=== PATIENT | female | born 1965 | race Caucasian/White ===

== ENCOUNTER 2018-04-20 08:24 | Emergency (ER) | payer OTHER, MEDICAID ==
[~2018-04-20] VITALS: Ht 172.7 cm; Wt 72.6 kg
[~2018-04-20 08:24] MED LIST: ACTOS15 MG PO; BUSPAR5 MG PO; CRESTOR5 MG PO; CYMBALTA60 M1 PO; DESYREL100 MG PO; GABAPENTIN400 MG PO; HUMALOG100 U/ML SC; LEVEMIR100 U/ML SC; LISINOPRIL5 MG PO; NEXIUM40 MG PO; REGLAN5 MG PO; VIBRAMYCIN100 MG PO; VICODIN 500 MG-1 TAB PO
[2018-04-20] MEDS ORDERED: Motrin,Rufen800 MG PO (10:26)
== END 2018-04-20 10:30 | disposition home or self-care (01) ==
LOC: ED 08:24
DX: S86.911A Strain of unspecified muscle(s) and tendon(s) at lower leg level, right leg, initial encounter (principal); Z79.899 Other long term (current) drug therapy; X58.XXXA Exposure to other specified factors, initial encounter; Y93.89 Activity, other specified; Y92.89 Other specified places as the place of occurrence of the external cause; Y99.8 Other external cause status

== ENCOUNTER 2019-03-02 20:01 | Inpatient (IN) | payer OTHER, MEDICAID ==
[~2019-03-02] VITALS: Ht 170.1 cm; Wt 75.2 kg
--- NOTE | ~2019-03-02 | EKG ---
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
--- NOTE | ~2019-03-02 | EKG ---
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
--- NOTE | ~2019-03-02 | EKG ---
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
--- NOTE | ~2019-03-02 | CON ---
[place], [place] REPORT OF CONSULTATION NAME: THONY SMITH UNIT #: [id number] ROOM: 426 DOCTOR: ELDER GARCIAALEC BIRTHDATE: [birth year] DOS: 03/05/2019 GASTROENDOSCOPIC REPORT HISTORY OF PRESENT ILLNESS: The patient is a 54-year-old who has presented with chief complaint of GI bleed. The patient has been on Advil and a nicotine aggressive smoker. CT scan of the abdomen and pelvis was done, small hiatal hernia, thickening of the distal esophagus. Endoscopy was recommended. Troponin was negative. Her CBC differential, H and H status stable at 12 and 38. Comprehensive metabolic panel, liver function tests essentially unremarkable. Triglyceride 254. Lipase was reassessed within normal limit. Chest x-ray has been obtained, no acute pathology. PAST MEDICAL HISTORY: Associated with COPD, diabetes mellitus, anxiety and gastroparesis. PAST SURGICAL HISTORY: D and C, hysterectomy. SOCIAL HISTORY: Lai-ivm-p-half pack smoker, nonalcohol consumer. FAMILY HISTORY: Noncontributory. ALLERGIES: No known medications. MEDICATIONS: List has been reviewed including Nexium, Motrin 800 mg t.i.d. p.r.n. and multi others as reviewed. REVIEW OF SYSTEMS: HEENT: Denies double vision or blurred vision. RESPIRATORY: Denies acute shortness of breath. CARDIOVASCULAR: Denies acute chest pain. DIGESTIVE SYSTEM: GI bleed, nausea, epigastric distress, vomiting. PHYSICAL EXAMINATION: GENERAL: COPD patient. HEENT: Within normal limit. Mouth and buccal mucosa benign, edentulous. NECK: Supple. LUNGS: COPD pattern, decreased air entry. HEART: Normal sinus rhythm, no gallop, no murmur. ABDOMEN: Soft. No hepato-organomegaly. Bowel sounds present. No pulsatile mass. EXTREMITIES: No cyanosis, no pedal edema. NEUROLOGIC: Alert, oriented to time, place, person. IMPRESSION: Nausea, epigastric distress, vomiting, gastrointestinal bleed. The patient on Motrin. The patient on multi other medications including Nexium and metoclopramide. PLAN AND DISCUSSION: I am going to proceed with panendoscopic assessment for the concerns of CT scan and thickening of the distal esophagus. [place], [place] REPORT OF CONSULTATION NAME: THONY SMITH UNIT #: [id number] ROOM: 426 DOCTOR: ELDER GARCIA,ALEC BIRTHDATE: [birth year] Thank you very much indeed for your kind referral. ALEC FRIEDMAN MD CM:CONSTR:REPORT OF CONSULTATION 1505 03/14/19 0727 interface
--- NOTE | ~2019-03-02 | O ---
[place], [place] OPERATIVE NOTE NAME: THONY SMITH UNIT #: [id number] ROOM: 426 DOCTOR: ALEC FRIEDMAN MD BIRTHDATE: [birth year] DOS: 03/05/2019 PROCEDURE: Today's procedure part of investigation is panendoscopy plus biopsy and photographic series. PREMEDICATION: Propofol. SCOPE: Olympus forward-viewing gastroscope Q10 video. REPORT: After putting the patient in left lateral position and application of lubricant to the scope, the scope was introduced. Thereafter, under direct visualization, advanced through the length of esophagus without difficulty. As we approached distal esophagus, there is evidence of distal esophageal ulcerations secondary to reflux, hiatal hernia was photographed. Gastric pouch was entered. Gastritis was noticed. Antral biopsy obtained. Duodenal bulb, second and third part within normal limits. The patient extubated after antral biopsy and GI reflexion, tolerated the procedure well. IMPRESSION: Reflux, distal esophageal ulcerations, hiatal hernia, gastritis, status post biopsy. PLAN AND DISCUSSION: We are going to continue with Protonix 40 mg daily, Carafate 2 grams 2 hours before meals and at bedtime. GERD diet and clinical reassessment. Etiology for GI bleed was secondary to ulcerations at distal esophagus secondary to reflux induced by aspirin products, nonsteroidal anti-inflammatories. Thank you very much indeed for your kind referral. ALEC FRIEDMAN MD CM:OPRECORD:OPERATIVE NOTE 1505 [id number] ALEC FRIEDMAN MD 03/06/19 0838 interface
[~2019-03-02 20:01] MED LIST changes: +BUSPAR15 MG PO; -BUSPAR5 MG PO; -GABAPENTIN400 MG PO; +GABAPENTIN600 MG PO; -LEVEMIR100 U/ML SC; +LEVEMIR100 UNIT/1 SQ; +LISINOPRIL10 M1 PO; -LISINOPRIL5 MG PO; +Motrin,Rufen800 MG PO
[2019-03-02 20:03] VITALS: BP 150/95
[2019-03-02 20:28] LABS: BASO # 0.2 10*3/uL (0.0-0.1); BASO % 0.7 % (0.0-1.0); EOS # 0.1 10*3/uL (0.0-0.4); EOS % 0.2 % (1.0-4.0); HEMATOCRIT 46.4 % (37.0-47.0); HEMOGLOBIN 15.1 g/dl (12.0-16.0); LYMPH # 2.9 10*3/uL (1.3-4.4); LYMPH % 12.9 % (27.0-41.0); MEAN CELL VOLUME 87.9 fl (81.0-99.0); MEAN CORPUSCULAR HGB 28.6 pg (27.0-31.0); MEAN CORPUSCULAR HGB CONC 32.5 g/dl (33.0-37.0); MEAN PLATELET VOLUME 9.9 fl (9.6-12.3); MONO % 4.6 % (3.0-9.0); NEUT % 80.9 % (47.0-73.0); PLATELET COUNT AUTOMATED 381 10*3/uL (130-400); RED BLOOD COUNT 5.28 10*6/uL (4.10-5.10); RED CELL DISTRI WIDTH 13.7 % (0-14.5); WHITE BLOOD COUNT 22.2 10*3/uL (4.8-10.8)
--- NOTE | 2019-03-02 20:31 | NUR ---
PT HAD APPROX 350CC COFFE GROUND LIKE EMESIS.SPECIMEN LABELED AND SENT TO LAB.
[2019-03-02 20:39] LABS: ACT PARTIAL THROMBO TIME 23.2 SECONDS (20.0-32.1); INTERNATIONAL NORM RATIO 0.9 (2.0-3.5)
[2019-03-02 20:47] LABS: ALKALINE PHOSPHATASE 154 U/L (45-117); BUN 15 mg/dl (7-24); CHLORIDE 96 mmol/L (98-107); CREATININE 1.12 mg/dL (0.55-1.02); POTASSIUM 4.2 mmol/L (3.5-5.1); SGOT/AST 4 IU/L (3-35); SGPT/ALT 13 U/L (12-78); SODIUM 132 mmol/L (136-145); TOTAL PROTEIN 8.1 gm/dL (6.4-8.2)
--- NOTE | 2019-03-02 20:47 | NUR ---
LAB CALLED WITH CRITICAL LACTIC ACID LEVEL 3.0. MD NOTIFIED.
[2019-03-02 20:48] LABS: TROPONIN I < 0.015 ng/ml (<0.045)
--- NOTE | 2019-03-02 20:48 | NUR ---
PT HAS SECOND EPISODE OF APPROX 300CC BROWN LIQUID EMESIS.
[2019-03-02 20:56] VITALS: BP 119/75
[2019-03-02] MEDS ORDERED: OZEMPIC1 MG/0.75 SQ (21:09)
[2019-03-02] MEDS ORDERED: DIAZEPAM5 MG PO (21:10)
[2019-03-02] MEDS ORDERED: JARDIANCE25 MG PO (21:12)
[2019-03-02] MEDS ORDERED: ROPINIROLE HYDRO2 M2 PO (21:13)
[2019-03-02] MEDS ORDERED: VITAMIN D2 PO (21:14)
[2019-03-02] MEDS ORDERED: PAROXETINE HCL30 MG PO (21:15)
[2019-03-02] MEDS ORDERED: CETIRIZINE HYDR10 MG PO (21:15)
[2019-03-02] MEDS ORDERED: METFORMIN HYD1000 MG PO (21:16)
[2019-03-02] MEDS ORDERED: METOCLOPRAMIDE10 M1 PO (21:17)
[2019-03-02] MEDS ORDERED: PRAVASTATIN SOD40 MG PO (21:17)
[2019-03-02] MEDS ORDERED: QUETIAPINE FUM300 M1 PO (21:19)
--- NOTE | 2019-03-02 21:22 | NUR ---
PT RETURNED FROM CT VIA STRETCHER, PT REPORTS RETURNING CHEST PRESSURE.MD NOTIFIED.
[2019-03-02 21:37] VITALS: BP 133/67
--- NOTE | 2019-03-02 22:02 | NUR ---
INFUSION OF 1ST LITER NS COMPLETED.
[2019-03-02 22:16] LABS: BILIRUBIN 1+ (NEGATIVE); BLOOD NEGATIVE (NEGATIVE); CLARITY CLEAR (CLEAR); COLOR YELLOW (YELLOW); GLUCOSE 3+ (NEGATIVE); KETONE 3+ (NEGATIVE); LEUKO ESTERASE NEGATIVE (NEGATIVE); NITRITE NEGATIVE (NEGATIVE); PH 5.5 (5.0-9.0); UROBILINOGEN 0.2 E.U./dl (0.2-1.0)
[2019-03-02 22:22] VITALS: BP 132/77
--- NOTE | 2019-03-02 22:22 | NUR ---
A 54yr old female,, admitted to ICCU, under the services of PATRICIA Newby DO with a diagnosis of DKA AND GI bleed. Chief complaint is not eating since Tuesday, with nausea, therefore didn't take any Insulin. Patient arrived via stretcher from ER. Monitor applied. Initial assessment completed. Vital signs taken and recorded. See assessment for past medical history, medications and allergies. Patient and/or family oriented to unit. [facility] ICCU visitation policy reviewed. Clothing/patient valuable form completed. Bedside Blood sugar obtained on arrival-308. Insulin drip started at 5units/hr per orders. KACIE MAGANA
[2019-03-02 22:25] LABS: YEAST 1+
--- NOTE | 2019-03-02 22:35 | NUR ---
MRSA SWAB SENT TO LAB.
[2019-03-02 22:57] LABS: ABG BASE EXCESS -17.3 mmol/L (-2.0-2.0); ABG HCO3 8.1 mmol/l (22-26); ABG O2 SATURATION 93.9 % (95-97); ARTERIAL BLOOD GAS PCO2 18.3 mmHg (35-45); ARTERIAL BLOOD GAS PH 7.266 (7.35-7.45)
[2019-03-02 23:39] LABS: BUN 16 mg/dl (7-24); CHLORIDE 105 mmol/L (98-107); POTASSIUM 4.3 mmol/L (3.5-5.1); SODIUM 137 mmol/L (136-145)
[2019-03-03] VITALS: BP 123/63
--- NOTE | 2019-03-03 01:05 | NUR ---
MILK OF MAG AND ZOFRAN GIVEN FOR COMPLAINTS OF NAUSEA, UPSET STOMACH AND HEARTBURN. RN WILL CONTINUE TO MONITOR
--- NOTE | 2019-03-03 01:30 | NUR ---
PATIENT MEDICATED WITH REGLAN PER DRS ORDERS FOR COMPLAINTS OF UPSET STOMACH. RN WILL CONTINUE TO MONITOR
--- NOTE | 2019-03-03 02:56 | NUR ---
NORCO GIVEN PER DRS ORDERS FOR COMPLAINTS OF HEADACHE AT THIS TIME. RN WILL REASSESS FOR EFFECTIVENESS
[2019-03-03 04:00] VITALS: BP 136/78
--- NOTE | 2019-03-03 05:13 | NUR ---
TYLENOL GIVEN FOR LOW GRADE FEVER AT 99.9 DEGREES TYMPANIC. PATIENT ABLE TO SWALLOW PILLS BUT STARTS SHE IS NAUSEATED.
--- NOTE | 2019-03-03 05:35 | NUR ---
PATIENT HAD LARGE EMESIS OF 575, LIGHT BROWN COLORED. PATIENT PROVIDED WITH NEW EMESIS BAG. DR TO BE MADE AWARE
[2019-03-03 05:41] LABS: ALBUMIN 3.5 gm/dl (3.1-4.5); ALKALINE PHOSPHATASE 128 U/L (45-117); BUN 13 mg/dl (7-24); CHLORIDE 107 mmol/L (98-107); CHOLESTEROL 169 mg/dL (<200); FREE T4 0.98 ng/dl (0.76-1.46); HDL CHOLESTEROL 36 mg/dl (40-60); LDL CHOLESTEROL 82 mg/dL (9-159); POTASSIUM 3.8 mmol/L (3.5-5.1); SGPT/ALT 11 U/L (12-78); SODIUM 140 mmol/L (136-145); TRIGLYCERIDES 254 mg/dl (<150); VLDL CHOLESTEROL 51 mg/dL (6-40)
[2019-03-03 05:48] LABS: SGOT/AST < 3 IU/L (3-35)
[2019-03-03 06:11] LABS: BASO # 0.1 10*3/uL (0.0-0.1); BASO % 0.3 % (0.0-1.0); LYMPH % 9.8 % (27.0-41.0); MEAN CORPUSCULAR HGB 28.4 pg (27.0-31.0); MEAN CORPUSCULAR HGB CONC 33.1 g/dl (33.0-37.0); MEAN PLATELET VOLUME 9.9 fl (9.6-12.3); MONO # 1.2 10*3/uL (0.1-1.0); MONO % 6.1 % (3.0-9.0); NEUT # 16.9 10*3/uL (2.3-7.9); NEUT % 83.3 % (47.0-73.0); PLATELET COUNT AUTOMATED 349 10*3/uL (130-400); RED CELL DISTRI WIDTH 13.9 % (0-14.5); WHITE BLOOD COUNT 20.3 10*3/uL (4.8-10.8)
[2019-03-03 06:16] LABS: HEMATOCRIT 38.7 % (37.0-47.0); HEMOGLOBIN 12.8 g/dl (12.0-16.0)
--- NOTE | 2019-03-03 06:49 | NUR ---
DR FRIEDMAN CALLED AT THIS TIME, CALLED 3 TIMES AND ALL 3 TIMES WENT STRAIGHT TO VOICE MAIL. MESSAGE WAS LEFT WITH CALL BACK NUMBER. WILL AWAIT CALL BACK
[2019-03-03 07:39] LABS: VITAMIN D, 25-HYDROXY 83.7 ng/mL (30-100)
[2019-03-03 08:52] LABS: BUN 13 mg/dl (7-24); CHLORIDE 108 mmol/L (98-107); CREATININE 0.83 mg/dL (0.55-1.02); POTASSIUM 3.4 mmol/L (3.5-5.1); SODIUM 141 mmol/L (136-145)
[2019-03-03 08:56] VITALS: BP 128/63
--- NOTE | 2019-03-03 09:50 | NUR ---
Vicodin effective to reduce KEENAN pain to 4/10.
--- NOTE | 2019-03-03 10:38 | NUR ---
Permit obtained and centrl line inserted to [facility] per Dr. Eddy.
--- NOTE | 2019-03-03 10:50 | NUR ---
[address] Poon called in and was notified of consult. C/O of headache 05/12 tylenol was ineffective. Medicated w/ norco. Emesis immediatly post medication. Dr. Johnston here and orders recieved. Medicated for n/v .
[2019-03-03 12:00] VITALS: BP 143/85
--- NOTE | 2019-03-03 12:10 | NUR ---
Family in to visit.MLC OK to use , K run up to infuse and IVF change per order.
--- NOTE | 2019-03-03 12:12 | NUR ---
IV site to causing discomfort and dc'd.
[2019-03-03 14:17] LABS: BUN 10 mg/dl (7-24); CHLORIDE 112 mmol/L (98-107); CREATININE 0.85 mg/dL (0.55-1.02); SODIUM 142 mmol/L (136-145)
[2019-03-03 14:20] LABS: POTASSIUM 4.7 mmol/L (3.5-5.1)
[2019-03-03 16:00] VITALS: BP 133/74
--- NOTE | 2019-03-03 17:01 | NUR ---
Dr. Eddy was notified of bed glu of 133 per sliding scale pp.
--- NOTE | 2019-03-03 17:48 | NUR ---
Medicated for c/o headache 05/12. Previously medicated for constipation. Expelled suppository only.
[2019-03-03 18:47] LABS: BUN 9 mg/dl (7-24); CHLORIDE 111 mmol/L (98-107); CREATININE 0.78 mg/dL (0.55-1.02); POTASSIUM 3.8 mmol/L (3.5-5.1); SODIUM 142 mmol/L (136-145)
[2019-03-03 20:00] VITALS: BP 143/87
--- NOTE | 2019-03-03 22:51 | NUR ---
PATIENT CALLED RN INTO ROOM AND ASKED IF THERE WAS ANY CHANCE THAT SHE WOULD BE DISCHARGED TONIGHT, RN EXPLAINED TO PATIENT THAT DUE TO INSULIN DRIP REMAINING ON AND WITH THE IV FLUIDS AND HER ANION GAP STILL OPEN, THAT SHE WOULD NOT BE DISCHARGED TONIGHT. PATIENT THEN CALLED HER ASKING HIM TO COME GET HER, ON THE PHONE IS REFUSING TO COME GET HER. PATIENT VISIBALLY UPSET AND STATES SHE IS STILL SICK AND JSUT WANTS TO GO HOME. RN TRIED TO EXPLAIN PLAN OF CARE TO PATIENT, PATIENT CONTINUES TO STATE SHE WANTS TO GO HOME. RN WILL CONTINUE TO MONITOR
[2019-03-03 22:58] LABS: BUN 7 mg/dl (7-24); CHLORIDE 111 mmol/L (98-107); CREATININE 0.79 mg/dL (0.55-1.02); POTASSIUM 3.4 mmol/L (3.5-5.1); SODIUM 142 mmol/L (136-145)
[2019-03-04] VITALS: BP 92/40
[2019-03-04 02:16] LABS: BUN 6 mg/dl (7-24); CHLORIDE 111 mmol/L (98-107); CREATININE 0.64 mg/dL (0.55-1.02); POTASSIUM 3.3 mmol/L (3.5-5.1); SODIUM 142 mmol/L (136-145)
[2019-03-04 04:00] VITALS: BP 109/57
[2019-03-04 05:38] LABS: BUN 5 mg/dl (7-24); CHLORIDE 110 mmol/L (98-107); CREATININE 0.62 mg/dL (0.55-1.02); SODIUM 141 mmol/L (136-145)
[2019-03-04 06:59] LABS: BASO # 0.1 10*3/uL (0.0-0.1); BASO % 0.9 % (0.0-1.0); EOS # 0.1 10*3/uL (0.0-0.4); HEMATOCRIT 33.7 % (37.0-47.0); LYMPH # 2.7 10*3/uL (1.3-4.4); LYMPH % 20.7 % (27.0-41.0); MEAN CELL VOLUME 87.1 fl (81.0-99.0); MEAN CORPUSCULAR HGB 28.4 pg (27.0-31.0); MEAN CORPUSCULAR HGB CONC 32.6 g/dl (33.0-37.0); MEAN PLATELET VOLUME 9.7 fl (9.6-12.3); MONO % 7.5 % (3.0-9.0); NEUT % 69.5 % (47.0-73.0); PLATELET COUNT AUTOMATED 282 10*3/uL (130-400); RED BLOOD COUNT 3.87 10*6/uL (4.10-5.10); RED CELL DISTRI WIDTH 14.2 % (0-14.5)
[2019-03-04 08:00] VITALS: BP 120/73
--- NOTE | 2019-03-04 08:00 | NUR ---
RESTING IN BED. DENIES ANY COMPLAINTS. DR. MARC HERE TO SEE PATIENT. TEMP 99.6. LUNGS CLEAR BILATERALLY. NO EDEMA NOTED. RIJ MLC INTACT WITH DRESSING DRY AND INTACT. NO COMPLAINTS VOICED.
[2019-03-04 12:00] VITALS: BP 133/61
[2019-03-04 16:00] VITALS: BP 151/97
--- NOTE | 2019-03-04 17:21 | NUR ---
MEDICATED WITH NORCO FOR COMPLAINTS OF A HEADACHE.
--- NOTE | 2019-03-04 18:02 | NUR ---
VOICES THAT NORCO WAS EFFECTIVE FOR A HEADACHE.
--- NOTE | 2019-03-04 18:58 | NUR ---
Shift chart check completed.24 HR chart check completed.
--- NOTE | 2019-03-04 19:53 | NUR ---
ON ASSESSMENT PATIENT IS RESTING EASILY, VISITORS AT BEDSIDE. SHE HAS NO VOICED COMPLAINTS OF PAIN OR NAUSEA AT THIS TIME. SHE'S AWARE SHE HAS "SCOPE" SCHEDULED FOR THE MORNING. IV FLUIDS INFUSING VIA RIJ. ROOM AIR AND NSR. NO PERIPHERAL EDEMA. BSC IN ROOM WHICH PT USES INDEPENDENTLY. SEE ALL APPROPRIATE INTERVENTIONS.
[2019-03-04 20:00] VITALS: BP 110/70
--- NOTE | 2019-03-04 21:20 | NUR ---
VANCOMYCIN TROUGH 8.5. DISCUSSED WITH PHARMACY. DOSE GIVEN NOW AND WILL BE RE-DOSED BY PHARMACY.
[2019-03-05] VITALS (10 sets, daily range): BP systolic 108–150; BP diastolic 64–82
--- NOTE | 2019-03-05 01:35 | NUR ---
SLEEPING AT LONG INTERVALS, NO DYSRHYTHMIAS OR RESPIRATORY DISTRESS. NPO FOR EGD IN AM.
[2019-03-05] MEDS ORDERED: LEVEMIR100 UNIT/1 SC (02:25)
--- NOTE | 2019-03-05 05:35 | NUR ---
ALMAZ FOR HEADACHE "5"/10. UP TO BSC TO VOID. [facility]. AM MEDS WITH SIPS OF WATER.
[2019-03-05 06:01] LABS: BUN 3 mg/dl (7-24); CHLORIDE 111 mmol/L (98-107); CREATININE 0.62 mg/dL (0.55-1.02); POTASSIUM 3.4 mmol/L (3.5-5.1); SODIUM 142 mmol/L (136-145)
[2019-03-05 06:11] LABS: BASO # 0.1 10*3/uL (0.0-0.1); BASO % 1.3 % (0.0-1.0); EOS # 0.2 10*3/uL (0.0-0.4); EOS % 2.7 % (1.0-4.0); HEMATOCRIT 33.6 % (37.0-47.0); HEMOGLOBIN 10.9 g/dl (12.0-16.0); LYMPH % 40.6 % (27.0-41.0); MEAN CORPUSCULAR HGB 28.5 pg (27.0-31.0); MEAN CORPUSCULAR HGB CONC 32.4 g/dl (33.0-37.0); MEAN PLATELET VOLUME 9.9 fl (9.6-12.3); MONO # 0.6 10*3/uL (0.1-1.0); MONO % 7.6 % (3.0-9.0); NEUT # 3.5 10*3/uL (2.3-7.9); NEUT % 47.1 % (47.0-73.0); PLATELET COUNT AUTOMATED 239 10*3/uL (130-400); RED BLOOD COUNT 3.82 10*6/uL (4.10-5.10); RED CELL DISTRI WIDTH 14.2 % (0-14.5); WHITE BLOOD COUNT 7.5 10*3/uL (4.8-10.8)
--- NOTE | 2019-03-05 06:15 | NUR ---
RESTING WITH HER EYES CLOSED, RESPIRATIONS NON-LABORED. NO FURTHER VOICED COMPLAINTS OF PAIN SINCE EARLIER NORCO.
--- NOTE | 2019-03-05 08:02 | NUR ---
NURSING MACHINE ROOM ENGINEER VIOLET NOTIFIED THAT PT HAS BEEN DOWNGRADED TO NON MONITORED PT.
--- NOTE | 2019-03-05 09:09 | NUR ---
PT TRANSFERED TO ROOM 426-1 AT THIS TIME VIA BED. REPORT GIVEN TO ALMAZ URIARTE.
--- NOTE | 2019-03-05 10:39 | NUR ---
MEDICATED WITH PRN PO NORCO FOR HEADACHE. PATIENT IS AWAITING EGD PROCEDURE WITH DR. FRIEDMAN TODAY IN THE OR.
--- NOTE | 2019-03-05 13:13 | NUR ---
PATIENT TO OR FOR EGD PROCEDURE.
--- NOTE | 2019-03-05 13:16 | NUR ---
Carbon Printer in to see patient. She is being wheeled out to the OR. Discharge plan undecided.
--- NOTE | 2019-03-05 15:49 | NUR ---
PATIENT RETURNED FROM EGD PROCEDURE; RESUMING MEDS AND DIET, SEE SHIFT ASSESSMENT FOR DETAILS.
--- NOTE | 2019-03-05 16:00 | NUR ---
MEDICATED WITH PRN PO NORCO FOR HEADACHE.
--- NOTE | 2019-03-05 17:38 | NUR ---
PRN NORCO INEFFECTIVE, PER PATIENT, HEADACHE REMAINS SEVERE. PATIENT MEDICATED WITH PRN IV MORPHINE AT THIS TIME.
--- NOTE | 2019-03-05 18:00 | NUR ---
PATIENT RESTING WITH NO S/S PAIN; MORPHINE EFFECTIVE.
[2019-03-06] VITALS: BP 123/69
[2019-03-06 06:08] LABS: BUN 6 mg/dl (7-24); CHLORIDE 112 mmol/L (98-107); CREATININE 0.62 mg/dL (0.55-1.02); POTASSIUM 3.7 mmol/L (3.5-5.1); SODIUM 143 mmol/L (136-145)
[2019-03-06 06:11] LABS: VANCOMYCIN TROUGH 14.8 ug/mL (10-20)
[2019-03-06 06:18] LABS: BASO # 0.1 10*3/uL (0.0-0.1); BASO % 0.9 % (0.0-1.0); EOS # 0.2 10*3/uL (0.0-0.4); EOS % 2.7 % (1.0-4.0); HEMATOCRIT 33.5 % (37.0-47.0); HEMOGLOBIN 10.8 g/dl (12.0-16.0); LYMPH # 2.4 10*3/uL (1.3-4.4); LYMPH % 28.2 % (27.0-41.0); MEAN CELL VOLUME 88.4 fl (81.0-99.0); MEAN CORPUSCULAR HGB 28.5 pg (27.0-31.0); MEAN CORPUSCULAR HGB CONC 32.2 g/dl (33.0-37.0); MEAN PLATELET VOLUME 9.5 fl (9.6-12.3); MONO # 0.5 10*3/uL (0.1-1.0); MONO % 6.2 % (3.0-9.0); NEUT # 5.2 10*3/uL (2.3-7.9); NEUT % 61.5 % (47.0-73.0); PLATELET COUNT AUTOMATED 268 10*3/uL (130-400); RED BLOOD COUNT 3.79 10*6/uL (4.10-5.10); RED CELL DISTRI WIDTH 14.2 % (0-14.5); WHITE BLOOD COUNT 8.5 10*3/uL (4.8-10.8)
[2019-03-06 08:00] VITALS: BP 121/66
--- NOTE | 2019-03-06 09:00 | NUR ---
Milk Sampler in to talk to patient. Patient states lives at home with her fiquin. There are 2 steps in the home. Physician: Dr. Juana Benítez Pharmacy: [facility] Home health services: none Patient's level of ADLs: INDEPENDENT Patient has working utilities: yes DME: none Follow-up physician's appointment after d/c: will be made by the hospitalist nurse director upon discharge Does patient want to access PORTAL?: no Discharge plan discussed with patient. She lives at home with her fiance. She is independent in her ADLs and ambulation. Discussed home health care services and she denies any home needs at this time. When medically stable she will be discharged to home. RUBEN HAMPTON
[2019-03-06 12:00] VITALS: BP 121/74
[2019-03-06] MEDS ORDERED: CARAFATE1 G1 PO (13:02)
--- NOTE | 2019-03-06 13:54 | NUR ---
DISCHARGE INSTRUCTIONS REVIEWED. RIGHT IJ REMOVED. PT INSTRUCTED TO STOP AT PHARMACY TO SENIOR STEREO COMPILER TEAM LEAD HER HOME MEDS. DAUGHTER TO TRANSPORT.
--- NOTE | 2019-03-06 14:23 | NUR ---
WHEELED OFF FLOOR AT THIS TIME. RIJ DRESSING INTACT. NO ACTIVE BLEEDING NOTED. DAUGHTER TO TRANSPORT.
[2019-03-16] MEDS ORDERED: GAVISCON 80-141 EACH PO (16:17)
[2019-03-17] MEDS ORDERED: DIFLUCAN150 MG PO (10:49)
[2019-03-17] MEDS ORDERED: Motrin,Rufen800 MG PO (10:50)
[2019-03-17] MEDS ORDERED: VITAMIN D22000 UNIT PO (10:59)
== END 2019-03-06 14:23 | disposition home or self-care (01) | DRG 871 ==
LOC: ED 20:01 → ICCU 21:26 → EDHOLD 21:26 → 4E 21:26 → ICCU 21:35 → 4E 03-05 09:01
PROVIDERS: Emergency Medicine; Internal Medicine; ADMIT Internal Medicine
PROC: 02HV33Z Insertion of Infusion Device into Superior Vena Cava, Percutaneous Approach (ICD-10-PCS; principal; 2019-03-03)
PROC: B548ZZA Ultrasonography of Superior Vena Cava, Guidance (ICD-10-PCS; principal; 2019-03-03)
PROC: 0DB78ZX Excision of Stomach, Pylorus, Via Natural or Artificial Opening Endoscopic, Diagnostic (ICD-10-PCS; 2019-03-05)
DX: A41.9 Sepsis, unspecified organism (principal); N17.0 Acute kidney failure with tubular necrosis; E11.10 Type 2 diabetes mellitus with ketoacidosis without coma; K22.11 Ulcer of esophagus with bleeding; K44.9 Diaphragmatic hernia without obstruction or gangrene; E78.5 Hyperlipidemia, unspecified; E11.43 Type 2 diabetes mellitus with diabetic autonomic (poly)neuropathy; K21.9 Gastro-esophageal reflux disease without esophagitis; K31.84 Gastroparesis; K29.70 Gastritis, unspecified, without bleeding; F41.9 Anxiety disorder, unspecified; R65.20 Severe sepsis without septic shock; E87.6 Hypokalemia; E87.8 Other disorders of electrolyte and fluid balance, not elsewhere classified; E83.39 Other disorders of phosphorus metabolism; T39.395A Adverse effect of other nonsteroidal anti-inflammatory drugs [NSAID], initial encounter; T39.015A Adverse effect of aspirin, initial encounter; Z79.4 Long term (current) use of insulin; Y92.89 Other specified places as the place of occurrence of the external cause

== ENCOUNTER 2019-07-24 16:17 | Emergency (ER) | payer OTHER, MEDICAID ==
[~2019-07-24] VITALS: Ht 172.7 cm; Wt 78.5 kg
--- NOTE | ~2019-07-24 | EKG ---
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
[~2019-07-24 16:17] MED LIST changes: +CARAFATE1 G1 PO; +CETIRIZINE HYDR10 MG PO; +DIAZEPAM5 MG PO; +DIFLUCAN150 MG PO; +GAVISCON 80-141 EACH PO; +JARDIANCE25 MG PO; +LEVEMIR100 UNIT/1 SC; +METFORMIN HYD1000 MG PO; +METOCLOPRAMIDE10 M1 PO; +OZEMPIC1 MG/0.75 SQ; +PAROXETINE HCL30 MG PO; +PRAVASTATIN SOD40 MG PO; +QUETIAPINE FUM300 M1 PO; +ROPINIROLE HYDRO2 M2 PO; +VITAMIN D2 PO; +VITAMIN D22000 UNIT PO
[2019-07-24 17:30] LABS: BILIRUBIN NEGATIVE (NEGATIVE); BLOOD NEGATIVE (NEGATIVE); CLARITY CLEAR (CLEAR); COLOR YELLOW (YELLOW); GLUCOSE 3+ (NEGATIVE); KETONE NEGATIVE (NEGATIVE); LEUKO ESTERASE NEGATIVE (NEGATIVE); NITRITE NEGATIVE (NEGATIVE); SPECIFIC GRAVITY <= 1.005 (1.005-1.030); UROBILINOGEN 0.2 E.U./dl (0.2-1.0)
[2019-07-24 17:31] LABS: BASO # 0.1 10*3/uL (0.0-0.1); BASO % 0.7 % (0.0-1.0); EOS # 0.1 10*3/uL (0.0-0.4); HEMATOCRIT 37.8 % (37.0-47.0); HEMOGLOBIN 12.4 g/dl (12.0-16.0); LYMPH # 2.9 10*3/uL (1.3-4.4); LYMPH % 25.1 % (27.0-41.0); MEAN CELL VOLUME 79.7 fl (81.0-99.0); MEAN CORPUSCULAR HGB 26.2 pg (27.0-31.0); MEAN CORPUSCULAR HGB CONC 32.8 g/dl (33.0-37.0); MEAN PLATELET VOLUME 9.2 fl (9.6-12.3); MONO # 0.6 10*3/uL (0.1-1.0); MONO % 5.6 % (3.0-9.0); NEUT # 7.7 10*3/uL (2.3-7.9); NEUT % 67.2 % (47.0-73.0); PLATELET COUNT AUTOMATED 302 10*3/uL (130-400); RED BLOOD COUNT 4.74 10*6/uL (4.10-5.10); RED CELL DISTRI WIDTH 15.7 % (0-14.5); WHITE BLOOD COUNT 11.5 10*3/uL (4.8-10.8)
[2019-07-24 17:42] LABS: ACT PARTIAL THROMBO TIME 26.5 SECONDS (20.0-32.1); INTERNATIONAL NORM RATIO 0.9 (2.0-3.5)
[2019-07-24 17:44] LABS: BACTERIA TRACE; WBC 0-2 wbc/hpf (0-5); YEAST 1+
[2019-07-24 17:45] LABS: ALBUMIN 3.1 gm/dl (3.1-4.5); ALKALINE PHOSPHATASE 138 U/L (45-117); BUN 6 mg/dl (7-24); CHLORIDE 95 mmol/L (98-107); CREATININE 0.82 mg/dL (0.55-1.02); LIPASE 104 U/L (73-393); SGOT/AST 6 IU/L (3-35); SGPT/ALT 12 U/L (12-78); SODIUM 123 mmol/L (136-145); TOTAL PROTEIN 6.4 gm/dL (6.4-8.2)
== END 2019-07-24 21:43 | disposition left against medical advice (07) ==
LOC: ED 16:17
PROVIDERS: Nurse Practitioner Family
DX: E87.1 Hypo-osmolality and hyponatremia (principal); R11.2 Nausea with vomiting, unspecified; R79.1 Abnormal coagulation profile; E11.9 Type 2 diabetes mellitus without complications; E78.5 Hyperlipidemia, unspecified; K21.9 Gastro-esophageal reflux disease without esophagitis; I10 Essential (primary) hypertension; F17.210 Nicotine dependence, cigarettes, uncomplicated; Z79.899 Other long term (current) drug therapy; Z79.4 Long term (current) use of insulin

== ENCOUNTER 2020-04-09 14:25 | Emergency (ER) | payer OTHER, MEDICAID ==
[~2020-04-09] VITALS: Ht 172.7 cm; Wt 79.4 kg
[2020-04-09] MEDS ORDERED: METOPROLOL SUCC25 M2 PO (15:21)
[2020-04-09] MEDS ORDERED: BAYER ASPIRIN C81 MG PO (15:23)
[2020-04-09] MEDS ORDERED: ROBAXIN-750750 MG PO (15:29)
[2020-04-09] MEDS ORDERED: MIDODRINE HCL5 M1 PO (15:30)
[2020-04-09] MEDS ORDERED: ZANAFLEX4 M1 PO (15:30)
[2020-04-09] MEDS ORDERED: Tobrex Ophth S2.5 ML OPH (16:19)
== END 2020-04-09 16:29 | disposition home or self-care (01) ==
LOC: ED 14:25
DX: S05.01XA Injury of conjunctiva and corneal abrasion without foreign body, right eye, initial encounter (principal); K21.9 Gastro-esophageal reflux disease without esophagitis; E11.9 Type 2 diabetes mellitus without complications; I10 Essential (primary) hypertension; F17.210 Nicotine dependence, cigarettes, uncomplicated; Z88.6 Allergy status to analgesic agent; Z79.899 Other long term (current) drug therapy; Z79.82 Long term (current) use of aspirin; Z79.4 Long term (current) use of insulin; X58.XXXA Exposure to other specified factors, initial encounter; Y93.89 Activity, other specified; Y92.89 Other specified places as the place of occurrence of the external cause; Y99.8 Other external cause status

== ENCOUNTER 2020-06-10 13:30 | Emergency (ER) | payer OTHER, MEDICAID ==
[~2020-06-10] VITALS: Ht 172.7 cm; Wt 80.7 kg
[~2020-06-10 13:30] MED LIST changes: +BAYER ASPIRIN C81 MG PO; +METOPROLOL SUCC25 M2 PO; +MIDODRINE HCL5 M1 PO; +ROBAXIN-750750 MG PO; +Tobrex Ophth S2.5 ML OPH; +ZANAFLEX4 M1 PO
[2020-06-10 14:53] LABS: BASO # 0.1 10*3/uL (0.0-0.1); BASO % 0.8 % (0.0-1.0); EOS # 0.2 10*3/uL (0.0-0.4); EOS % 2.5 % (1.0-4.0); HEMATOCRIT 40.7 % (37.0-47.0); LYMPH # 2.4 10*3/uL (1.3-4.4); LYMPH % 26.7 % (27.0-41.0); MEAN CELL VOLUME 91.5 fl (81.0-99.0); MEAN CORPUSCULAR HGB 29.9 pg (27.0-31.0); MEAN CORPUSCULAR HGB CONC 32.7 g/dl (33.0-37.0); MEAN PLATELET VOLUME 9.6 fl (9.6-12.3); MONO # 0.6 10*3/uL (0.1-1.0); MONO % 6.7 % (3.0-9.0); NEUT # 5.6 10*3/uL (2.3-7.9); PLATELET COUNT AUTOMATED 222 10*3/uL (130-400); RED BLOOD COUNT 4.45 10*6/uL (4.10-5.10); RED CELL DISTRI WIDTH 13.4 % (0-14.5); WHITE BLOOD COUNT 8.8 10*3/uL (4.8-10.8)
[2020-06-10 15:06] LABS: ACT PARTIAL THROMBO TIME 24.4 SECONDS (20.0-32.1); INTERNATIONAL NORM RATIO 0.8 (2.0-3.5)
[2020-06-10 15:10] LABS: ALBUMIN 2.8 gm/dl (3.1-4.5); ALKALINE PHOSPHATASE 114 U/L (45-117); BUN 7 mg/dl (7-24); CHLORIDE 109 mmol/L (98-107); CREATININE 1.04 mg/dL (0.55-1.02); LIPASE 88 U/L (73-393); POTASSIUM 3.7 mmol/L (3.5-5.1); SGOT/AST 8 IU/L (3-35); SGPT/ALT 17 U/L (12-78); SODIUM 136 mmol/L (136-145); TOTAL PROTEIN 5.8 gm/dL (6.4-8.2)
[2020-06-10 15:21] LABS: TROPONIN I < 0.015 ng/ml (<0.045)
[2020-06-10 16:25] LABS: BILIRUBIN NEGATIVE; BLOOD NEGATIVE (NEGATIVE); CLARITY CLEAR (CLEAR); COLOR YELLOW (YELLOW); GLUCOSE 3+; KETONE NEGATIVE; SPECIFIC GRAVITY > 1.030 (1.001-1.030)
[2020-06-10 16:26] LABS: BACTERIA TRACE; LEUKO ESTERASE NEGATIVE (NEGATIVE); NITRITE NEGATIVE (NEGATIVE); PH 5.5 (4.5-8.0); YEAST 1+
== END 2020-06-10 16:57 | disposition home or self-care (01) ==
LOC: ED 13:30
PROVIDERS: Nurse Practitioner Family
DX: S09.90XA Unspecified injury of head, initial encounter (principal); M54.6 Pain in thoracic spine; R42 Dizziness and giddiness; R11.0 Nausea; E11.9 Type 2 diabetes mellitus without complications; I10 Essential (primary) hypertension; K21.9 Gastro-esophageal reflux disease without esophagitis; R79.1 Abnormal coagulation profile; F17.210 Nicotine dependence, cigarettes, uncomplicated; Z88.6 Allergy status to analgesic agent; Z79.899 Other long term (current) drug therapy; Z79.82 Long term (current) use of aspirin; W10.8XXA Fall (on) (from) other stairs and steps, initial encounter; Y93.89 Activity, other specified; Y92.89 Other specified places as the place of occurrence of the external cause; Y99.8 Other external cause status

== ENCOUNTER 2020-06-30 19:21 | Emergency (ER) | payer OTHER, MEDICAID ==
[~2020-06-30] VITALS: Wt 86.2 kg
[2020-06-30 19:49] LABS: BASO # 0.1 10*3/uL (0.0-0.1); BASO % 0.8 % (0.0-1.0); EOS # 0.2 10*3/uL (0.0-0.4); EOS % 1.6 % (1.0-4.0); HEMATOCRIT 42.1 % (37.0-47.0); LYMPH # 3.2 10*3/uL (1.3-4.4); LYMPH % 27.2 % (27.0-41.0); MEAN CELL VOLUME 91.3 fl (81.0-99.0); MEAN CORPUSCULAR HGB 29.7 pg (27.0-31.0); MEAN CORPUSCULAR HGB CONC 32.5 g/dl (33.0-37.0); MEAN PLATELET VOLUME 9.2 fl (9.6-12.3); MONO # 0.6 10*3/uL (0.1-1.0); MONO % 5.4 % (3.0-9.0); NEUT # 7.6 10*3/uL (2.3-7.9); NEUT % 64.5 % (47.0-73.0); PLATELET COUNT AUTOMATED 320 10*3/uL (130-400); RED BLOOD COUNT 4.61 10*6/uL (4.10-5.10); RED CELL DISTRI WIDTH 13.2 % (0-14.5); WHITE BLOOD COUNT 11.8 10*3/uL (4.8-10.8)
[2020-06-30 20:10] LABS: ALBUMIN 3.1 gm/dl (3.1-4.5); ALKALINE PHOSPHATASE 112 U/L (45-117); BUN 10 mg/dl (7-24); CHLORIDE 108 mmol/L (98-107); CREATININE 1.13 mg/dL (0.55-1.02); POTASSIUM 4.1 mmol/L (3.5-5.1); SGOT/AST 4 IU/L (3-35); SGPT/ALT 19 U/L (12-78); SODIUM 138 mmol/L (136-145); TOTAL PROTEIN 6.3 gm/dL (6.4-8.2)
[2020-06-30 20:15] LABS: ACT PARTIAL THROMBO TIME 23.1 SECONDS (20.0-32.1); INTERNATIONAL NORM RATIO 0.8 (2.0-3.5)
[2020-06-30 20:17] LABS: TROPONIN I < 0.015 ng/ml (<0.045)
[2020-06-30] MEDS ORDERED: MEDROL DOSEPAK4 MG PO (21:48)
== END 2020-06-30 22:42 | disposition home or self-care (01) ==
LOC: ED 19:21
PROVIDERS: Emergency Medicine
DX: J98.8 Other specified respiratory disorders (principal); Z79.899 Other long term (current) drug therapy

== ENCOUNTER 2020-07-24 13:45 | Emergency (ER) | payer OTHER, MEDICAID ==
[~2020-07-24] VITALS: Ht 172.7 cm; Wt 90.7 kg
== END 2020-07-24 18:50 | disposition short-term general hospital (02) ==
LOC: ED 13:45
DX: S06.5X9A Traumatic subdural hemorrhage with loss of consciousness of unspecified duration, initial encounter (principal); X58.XXXA Exposure to other specified factors, initial encounter; Y93.89 Activity, other specified; Y92.89 Other specified places as the place of occurrence of the external cause; Y99.8 Other external cause status

== ENCOUNTER 2020-12-15 14:29 | Emergency (ER) | payer OTHER, MEDICAID ==
[~2020-12-15] VITALS: Wt 104.3 kg
[~2020-12-15 14:29] MED LIST changes: +MEDROL DOSEPAK4 MG PO
[2020-12-15 15:20] LABS: BASO # 0.1 10*3/uL (0.0-0.1); BASO % 0.9 % (0.0-1.0); EOS # 0.2 10*3/uL (0.0-0.4); EOS % 2.6 % (1.0-4.0); HEMATOCRIT 40.1 % (37.0-47.0); LYMPH % 22.7 % (27.0-41.0); MEAN CELL VOLUME 89.9 fl (81.0-99.0); MEAN CORPUSCULAR HGB 29.1 pg (27.0-31.0); MEAN CORPUSCULAR HGB CONC 32.4 g/dl (33.0-37.0); MEAN PLATELET VOLUME 9.5 fl (9.6-12.3); MONO # 0.5 10*3/uL (0.1-1.0); MONO % 5.4 % (3.0-9.0); NEUT # 5.9 10*3/uL (2.3-7.9); NEUT % 68.1 % (47.0-73.0); PLATELET COUNT AUTOMATED 230 10*3/uL (130-400); RED BLOOD COUNT 4.46 10*6/uL (4.10-5.10); RED CELL DISTRI WIDTH 13.2 % (0-14.5); WHITE BLOOD COUNT 8.7 10*3/uL (4.8-10.8)
[2020-12-15 15:31] LABS: ACT PARTIAL THROMBO TIME 44.4 SECONDS (20.0-32.1); INTERNATIONAL NORM RATIO 2.5 (2.0-3.5)
[2020-12-15 15:38] LABS: ALBUMIN 2.9 gm/dl (3.1-4.5); ALKALINE PHOSPHATASE 159 U/L (45-117); BUN 8 mg/dl (7-24); CHLORIDE 107 mmol/L (98-107); CREATININE 0.85 mg/dL (0.55-1.02); LIPASE 71 U/L (73-393); POTASSIUM 3.3 mmol/L (3.5-5.1); SGOT/AST 8 IU/L (3-35); SGPT/ALT 17 U/L (12-78); SODIUM 139 mmol/L (136-145); TOTAL PROTEIN 6.2 gm/dL (6.4-8.2); TROPONIN I < 0.015 ng/ml (<0.045)
[2020-12-15 17:52] LABS: BILIRUBIN Negative (Negative); BLOOD Negative (Negative); CLARITY Clear (Clear); COLOR Yellow (Yellow); GLUCOSE 3+ (Negative); KETONE Negative (Negative); LEUKO ESTERASE Negative (Negative); NITRITE Negative (Negative); UROBILINOGEN 0.2 E.U./dl (0.0-1.0)
[2020-12-15 18:07] LABS: BACTERIA 4+; RBC 0-2 rbc/hpf (0-2)
[2020-12-15 18:08] LABS: EPITHELIAL CELLS 0-2; WBC 21-30 wbc/hpf (0-5)
[2020-12-15] MEDS ORDERED: CIPRO500 MG PO (19:53)
== END 2020-12-15 19:57 | disposition home or self-care (01) ==
LOC: ED 14:29
PROVIDERS: Emergency Medicine
DX: N39.0 Urinary tract infection, site not specified (principal); E87.6 Hypokalemia; E44.1 Mild protein-calorie malnutrition; F32.9 Major depressive disorder, single episode, unspecified; K21.9 Gastro-esophageal reflux disease without esophagitis; E11.9 Type 2 diabetes mellitus without complications; I10 Essential (primary) hypertension; F17.200 Nicotine dependence, unspecified, uncomplicated; Z90.711 Acquired absence of uterus with remaining cervical stump; Z88.8 Allergy status to other drugs, medicaments and biological substances; Z79.899 Other long term (current) drug therapy; Z98.51 Tubal ligation status; Z98.890 Other specified postprocedural states

== ENCOUNTER 2020-12-22 12:17 | Emergency (ER) | payer OTHER, MEDICAID ==
[~2020-12-22] VITALS: Ht 170.1 cm; Wt 104.3 kg
[~2020-12-22 12:17] MED LIST changes: +CIPRO500 MG PO
[2020-12-22 13:16] LABS: BASO # 0.1 10*3/uL (0.0-0.1); BASO % 0.9 % (0.0-1.0); EOS # 0.2 10*3/uL (0.0-0.4); EOS % 1.8 % (1.0-4.0); HEMATOCRIT 39.5 % (37.0-47.0); LYMPH # 1.9 10*3/uL (1.3-4.4); LYMPH % 20.2 % (27.0-41.0); MEAN CELL VOLUME 89.2 fl (81.0-99.0); MEAN CORPUSCULAR HGB 29.1 pg (27.0-31.0); MEAN CORPUSCULAR HGB CONC 32.7 g/dl (33.0-37.0); MEAN PLATELET VOLUME 9.5 fl (9.6-12.3); MONO # 0.5 10*3/uL (0.1-1.0); MONO % 5.6 % (3.0-9.0); NEUT # 6.7 10*3/uL (2.3-7.9); NEUT % 71.1 % (47.0-73.0); PLATELET COUNT AUTOMATED 233 10*3/uL (130-400); RED BLOOD COUNT 4.43 10*6/uL (4.10-5.10); RED CELL DISTRI WIDTH 13.4 % (0-14.5); WHITE BLOOD COUNT 9.5 10*3/uL (4.8-10.8)
[2020-12-22 13:26] LABS: BILIRUBIN Negative (Negative); BLOOD Negative (Negative); CLARITY Cloudy (Clear); COLOR Yellow (Yellow); GLUCOSE 3+ (Negative); KETONE Negative (Negative); LEUKO ESTERASE Negative (Negative); NITRITE Negative (Negative); PH 5.5 (4.5-8.0); UROBILINOGEN 0.2 E.U./dl (0.0-1.0)
[2020-12-22 13:29] LABS: INTERNATIONAL NORM RATIO 4.1 (2.0-3.5)
[2020-12-22 13:32] LABS: ALBUMIN 3.1 gm/dl (3.1-4.5); ALKALINE PHOSPHATASE 163 U/L (45-117); BUN 8 mg/dl (7-24); CHLORIDE 110 mmol/L (98-107); CREATININE 0.91 mg/dL (0.55-1.02); POTASSIUM 3.4 mmol/L (3.5-5.1); SGOT/AST 13 IU/L (3-35); SGPT/ALT 24 U/L (12-78); SODIUM 141 mmol/L (136-145); TOTAL PROTEIN 6.4 gm/dL (6.4-8.2)
[2020-12-22 13:34] LABS: TROPONIN I < 0.015 ng/ml (<0.045)
[2020-12-22 13:50] LABS: BACTERIA TRACE; RBC 0-2 rbc/hpf (0-2); WBC 0-2 wbc/hpf (0-5); YEAST 1+
== END 2020-12-22 14:53 | disposition home or self-care (01) ==
LOC: ED 12:17
PROVIDERS: Emergency Medicine
DX: S39.013A Strain of muscle, fascia and tendon of pelvis, initial encounter (principal); S20.212A Contusion of left front wall of thorax, initial encounter; S09.90XA Unspecified injury of head, initial encounter; M25.562 Pain in left knee; R42 Dizziness and giddiness; F17.210 Nicotine dependence, cigarettes, uncomplicated; Z79.82 Long term (current) use of aspirin; Z79.899 Other long term (current) drug therapy; Z88.6 Allergy status to analgesic agent; W18.30XA Fall on same level, unspecified, initial encounter; Y93.89 Activity, other specified; Y92.89 Other specified places as the place of occurrence of the external cause; Y99.9 Unspecified external cause status

== ENCOUNTER 2021-02-17 18:48 | Emergency (ER) | payer OTHER, MEDICAID ==
[~2021-02-17] VITALS: Ht 172.7 cm; Wt 106.6 kg
== END 2021-02-17 23:47 | disposition home or self-care (01) ==
LOC: ED 18:48
DX: S06.0X9A Concussion with loss of consciousness of unspecified duration, initial encounter (principal); Z88.0 Allergy status to penicillin; Z79.899 Other long term (current) drug therapy; Z90.711 Acquired absence of uterus with remaining cervical stump; Z98.51 Tubal ligation status; Z98.890 Other specified postprocedural states; W06.XXXA Fall from bed, initial encounter; Y93.89 Activity, other specified; Y92.89 Other specified places as the place of occurrence of the external cause; Y99.8 Other external cause status

== ENCOUNTER 2021-02-20 13:07 | Emergency (ER) | payer OTHER, MEDICAID ==
[~2021-02-20] VITALS: Ht 172.7 cm; Wt 106.6 kg
[2021-02-20 15:10] LABS: BILIRUBIN Negative (Negative); BLOOD Negative (Negative); CLARITY Clear (Clear); COLOR Yellow (Yellow); GLUCOSE 3+ (Negative); KETONE Negative (Negative); LEUKO ESTERASE Negative (Negative); NITRITE Negative (Negative); UROBILINOGEN 0.2 E.U./dl (0.0-1.0)
[2021-02-20 15:11] LABS: BASO # 0.1 10*3/uL (0.0-0.1); BASO % 0.9 % (0.0-1.0); EOS # 0.2 10*3/uL (0.0-0.4); EOS % 1.7 % (1.0-4.0); HEMATOCRIT 41.1 % (37.0-47.0); LYMPH # 2.4 10*3/uL (1.3-4.4); LYMPH % 23.4 % (27.0-41.0); MEAN CELL VOLUME 87.6 fl (81.0-99.0); MEAN CORPUSCULAR HGB 28.8 pg (27.0-31.0); MEAN CORPUSCULAR HGB CONC 32.8 g/dl (33.0-37.0); MEAN PLATELET VOLUME 9.5 fl (9.6-12.3); MONO # 0.5 10*3/uL (0.1-1.0); MONO % 5.3 % (3.0-9.0); NEUT # 6.9 10*3/uL (2.3-7.9); NEUT % 68.3 % (47.0-73.0); PLATELET COUNT AUTOMATED 233 10*3/uL (130-400); RED BLOOD COUNT 4.69 10*6/uL (4.10-5.10); RED CELL DISTRI WIDTH 13.6 % (0-14.5); WHITE BLOOD COUNT 10.1 10*3/uL (4.8-10.8)
[2021-02-20 15:27] LABS: ALKALINE PHOSPHATASE 140 U/L (45-117); BUN 14 mg/dl (7-24); CHLORIDE 107 mmol/L (98-107); CREATININE 1.04 mg/dL (0.55-1.02); LIPASE 77 U/L (73-393); POTASSIUM 3.9 mmol/L (3.5-5.1); SGOT/AST 5 IU/L (3-35); SGPT/ALT 18 U/L (12-78); SODIUM 137 mmol/L (136-145); TOTAL PROTEIN 6.5 gm/dL (6.4-8.2)
[2021-02-20 15:32] LABS: TROPONIN I < 0.015 ng/ml (<0.045)
[2021-02-20 15:37] LABS: ACT PARTIAL THROMBO TIME 46.3 SECONDS (20.0-32.1); INTERNATIONAL NORM RATIO 3.1 (2.0-3.5)
[2021-02-20 15:40] LABS: WBC 0-2 wbc/hpf (0-5); YEAST 1+
== END 2021-02-20 19:20 | disposition left against medical advice (07) ==
LOC: ED 13:07
PROVIDERS: Emergency Medicine
DX: R55 Syncope and collapse (principal); Z88.8 Allergy status to other drugs, medicaments and biological substances; Z79.899 Other long term (current) drug therapy; Z79.4 Long term (current) use of insulin; Z79.82 Long term (current) use of aspirin; Z90.711 Acquired absence of uterus with remaining cervical stump; Z98.51 Tubal ligation status; Z98.890 Other specified postprocedural states

== ENCOUNTER 2021-03-20 11:33 | Emergency (ER) | payer OTHER, MEDICAID ==
[~2021-03-20] VITALS: Ht 172.7 cm; Wt 105.7 kg
== END 2021-03-20 15:25 | disposition home or self-care (01) ==
LOC: ED 11:33
DX: S63.502A Unspecified sprain of left wrist, initial encounter (principal); S70.02XA Contusion of left hip, initial encounter; Z88.8 Allergy status to other drugs, medicaments and biological substances; Z79.899 Other long term (current) drug therapy; Z79.4 Long term (current) use of insulin; Z90.711 Acquired absence of uterus with remaining cervical stump; Z98.51 Tubal ligation status; Z98.890 Other specified postprocedural states; W19.XXXA Unspecified fall, initial encounter; Y93.89 Activity, other specified; Y92.89 Other specified places as the place of occurrence of the external cause; Y99.8 Other external cause status

== ENCOUNTER 2021-07-30 10:44 | Emergency (ER) | payer OTHER, MEDICAID ==
[~2021-07-30] VITALS: Ht 172.7 cm; Wt 106.6 kg
[~2021-07-30 10:44] MED LIST changes: +CRESTOR20 M1 PO; +ELIQUIS2.5 M1 PO; +HUMALOG 751 UNIT/0.0 SC; +RYBELSUS7 MG PO; +VALIUM5 MG PO
[2021-07-30 11:10] LABS: BASO # 0.1 10*3/uL (0.0-0.1); BASO % 0.8 % (0.0-1.0); EOS # 0.2 10*3/uL (0.0-0.4); EOS % 2.2 % (1.0-4.0); HEMATOCRIT 44.2 % (37.0-47.0); LYMPH # 2.9 10*3/uL (1.3-4.4); LYMPH % 27.9 % (27.0-41.0); MEAN CELL VOLUME 88.2 fl (81.0-99.0); MEAN CORPUSCULAR HGB 29.1 pg (27.0-31.0); MEAN PLATELET VOLUME 9.9 fl (9.6-12.3); MONO # 0.5 10*3/uL (0.1-1.0); MONO % 4.8 % (3.0-9.0); NEUT # 6.7 10*3/uL (2.3-7.9); PLATELET COUNT AUTOMATED 261 10*3/uL (130-400); RED BLOOD COUNT 5.01 10*6/uL (4.10-5.10); RED CELL DISTRI WIDTH 13.3 % (0-14.5); WHITE BLOOD COUNT 10.4 10*3/uL (4.8-10.8)
[2021-07-30] MEDS ORDERED: SEROQUEL400 M1 PO (11:20)
[2021-07-30] MEDS ORDERED: ROPINIROLE HYDRO3 MG PO (11:20)
[2021-07-30] MEDS ORDERED: GABAPENTIN600 MG PO (11:21)
[2021-07-30] MEDS ORDERED: BUSPIRONE HYDRO30 MG PO (11:22)
[2021-07-30] MEDS ORDERED: NEXIUM40 MG PO (11:22)
[2021-07-30 11:23] LABS: ACT PARTIAL THROMBO TIME 26.5 SECONDS (20.0-32.1); INTERNATIONAL NORM RATIO 0.9 (2.0-3.5)
[2021-07-30] MEDS ORDERED: VALIUM5 MG PO (11:23)
[2021-07-30] MEDS ORDERED: TOPROL XL50 M1 PO (11:23)
[2021-07-30] MEDS ORDERED: VITAMIN C250 M2 PO (11:24)
[2021-07-30] MEDS ORDERED: ZANAFLEX4 M2 PO (11:25)
[2021-07-30] MEDS ORDERED: CRESTOR20 M1 PO (11:26)
[2021-07-30] MEDS ORDERED: JARDIANCE25 MG PO (11:27)
[2021-07-30] MEDS ORDERED: PAROXETINE40 MG PO (11:27)
[2021-07-30] MEDS ORDERED: ELIQUIS2.5 M1 PO (11:28)
[2021-07-30] MEDS ORDERED: VITAMIN B122500 MCG PO (11:28)
[2021-07-30] MEDS ORDERED: HUMALOG MI100 UNIT/1 SQ (11:29)
[2021-07-30] MEDS ORDERED: RYBELSUS3 MG PO (11:30)
[2021-07-30] MEDS ORDERED: Carafate1 GM PO (11:31)
[2021-07-30 11:32] LABS: ALBUMIN 3.2 gm/dl (3.1-4.5); ALKALINE PHOSPHATASE 167 U/L (45-117); BUN 9 mg/dl (7-24); CHLORIDE 104 mmol/L (98-107); CREATININE 1.15 mg/dL (0.55-1.02); POTASSIUM 3.8 mmol/L (3.5-5.1); SGOT/AST 10 IU/L (3-35); SGPT/ALT 22 U/L (12-78); SODIUM 140 mmol/L (136-145); TOTAL PROTEIN 6.5 gm/dL (6.4-8.2)
[2021-07-30 11:33] LABS: TROPONIN I < 0.015 ng/ml (<0.045)
== END 2021-07-30 17:30 | disposition home or self-care (01) ==
LOC: ED 10:44
PROVIDERS: Emergency Medicine
DX: I10 Essential (primary) hypertension (principal); Z88.6 Allergy status to analgesic agent; Z79.899 Other long term (current) drug therapy; F17.210 Nicotine dependence, cigarettes, uncomplicated

== ENCOUNTER 2021-11-03 13:19 | Emergency (ER) | payer OTHER, MEDICAID ==
[~2021-11-03] VITALS: Ht 170.1 cm; Wt 107.0 kg
[~2021-11-03 13:19] MED LIST changes: +BUSPIRONE HYDRO30 MG PO; +Carafate1 GM PO; +HUMALOG MI100 UNIT/1 SQ; +PAROXETINE40 MG PO; +ROPINIROLE HYDRO3 MG PO; +RYBELSUS3 MG PO; +SEROQUEL400 M1 PO; +TOPROL XL50 M1 PO; +VITAMIN B122500 MCG PO; +VITAMIN C250 M2 PO; +ZANAFLEX4 M2 PO
== END 2021-11-03 16:41 | disposition home or self-care (01) ==
LOC: ED 13:19
DX: S30.0XXA Contusion of lower back and pelvis, initial encounter (principal); S09.90XA Unspecified injury of head, initial encounter; Z88.6 Allergy status to analgesic agent; Z79.899 Other long term (current) drug therapy; Z90.711 Acquired absence of uterus with remaining cervical stump; Z87.891 Personal history of nicotine dependence; W18.39XA Other fall on same level, initial encounter; Y93.89 Activity, other specified; Y92.89 Other specified places as the place of occurrence of the external cause; Y99.8 Other external cause status

== ENCOUNTER 2022-04-05 21:38 | Emergency (ER) | payer OTHER, MEDICAID ==
[~2022-04-05] VITALS: Ht 167.6 cm; Wt 86.2 kg
[2022-04-05 22:03] LABS: BASO # 0.1 10*3/uL (0.0-0.1); BASO % 0.6 % (0.0-1.0); EOS # 0.1 10*3/uL (0.0-0.4); EOS % 1.5 % (1.0-4.0); HEMATOCRIT 42.3 % (37.0-47.0); LYMPH # 2.3 10*3/uL (1.3-4.4); LYMPH % 28.2 % (27.0-41.0); MEAN CELL VOLUME 86.9 fl (81.0-99.0); MEAN CORPUSCULAR HGB 29.2 pg (27.0-31.0); MEAN CORPUSCULAR HGB CONC 33.6 g/dl (33.0-37.0); MONO # 0.5 10*3/uL (0.1-1.0); MONO % 5.5 % (3.0-9.0); NEUT # 5.2 10*3/uL (2.3-7.9); PLATELET COUNT AUTOMATED 221 10*3/uL (130-400); RED BLOOD COUNT 4.87 10*6/uL (4.10-5.10); RED CELL DISTRI WIDTH 12.6 % (0-14.5); WHITE BLOOD COUNT 8.1 10*3/uL (4.8-10.8)
[2022-04-05 22:20] LABS: CREATININE 1.23 mg/dL (0.55-1.02); POTASSIUM 3.7 mmol/L (3.5-5.1); TOTAL PROTEIN 6.2 gm/dL (6.4-8.2)
[2022-04-05 23:19] LABS: BILIRUBIN Negative (Negative); BLOOD Negative (Negative); CLARITY Clear (Clear); COLOR Yellow (Yellow); GLUCOSE 3+ (Negative); KETONE Negative (Negative); LEUKO ESTERASE Negative (Negative); NITRITE Negative (Negative); SPECIFIC GRAVITY >= 1.030 (1.001-1.030); UROBILINOGEN 0.2 E.U./dl (0.0-1.0)
[2022-04-05 23:30] LABS: WBC 0-2 wbc/hpf (0-5); YEAST TRACE
== END 2022-04-06 01:05 | disposition home or self-care (01) ==
LOC: ED 21:38
PROVIDERS: Internal Medicine
DX: E11.65 Type 2 diabetes mellitus with hyperglycemia (principal); E44.0 Moderate protein-calorie malnutrition; E87.8 Other disorders of electrolyte and fluid balance, not elsewhere classified; N18.31 Chronic kidney disease, stage 3a; Z88.6 Allergy status to analgesic agent; Z79.899 Other long term (current) drug therapy; Z90.710 Acquired absence of both cervix and uterus; F17.210 Nicotine dependence, cigarettes, uncomplicated; Z98.51 Tubal ligation status

== ENCOUNTER 2022-08-27 15:50 | Emergency (ER) | payer OTHER, MEDICAID ==
[~2022-08-27] VITALS: Ht 167.6 cm; Wt 100.7 kg
== END 2022-08-27 18:08 | disposition home or self-care (01) ==
LOC: ED 15:50
DX: G89.18 Other acute postprocedural pain (principal); Z90.89 Acquired absence of other organs; Z88.6 Allergy status to analgesic agent; Z79.899 Other long term (current) drug therapy; Z90.711 Acquired absence of uterus with remaining cervical stump; F17.210 Nicotine dependence, cigarettes, uncomplicated; Z98.51 Tubal ligation status; Z98.890 Other specified postprocedural states

== ENCOUNTER 2022-10-28 12:35 | Emergency (ER) | payer OTHER, MEDICAID ==
[~2022-10-28] VITALS: Wt 100.7 kg
[~2022-10-28 12:35] MED LIST changes: +KERENDIA10 MG PO; -PAROXETINE40 MG PO; +PAXIL30 M2 PO
== END 2022-10-28 15:30 | disposition home or self-care (01) ==
LOC: ED 12:35
DX: T25.221A Burn of second degree of right foot, initial encounter (principal); Z23 Encounter for immunization; E11.9 Type 2 diabetes mellitus without complications; F17.200 Nicotine dependence, unspecified, uncomplicated; Z90.710 Acquired absence of both cervix and uterus; Z98.51 Tubal ligation status; Z90.89 Acquired absence of other organs; Z98.890 Other specified postprocedural states; Z79.899 Other long term (current) drug therapy; Z88.6 Allergy status to analgesic agent; X08.8XXA Exposure to other specified smoke, fire and flames, initial encounter; Y93.89 Activity, other specified; Y92.89 Other specified places as the place of occurrence of the external cause; Y99.8 Other external cause status

== ENCOUNTER → 2022-10-29 | Outpatient (CLI) | payer OTHER, MEDICAID | END | disposition home or self-care (01) | LOC: WOUNDCARE 07:22 | PROVIDERS: ATTEND Nurse Practitioner Family | DX: T25.221A Burn of second degree of right foot, initial encounter (principal); T25.331A Burn of third degree of right toe(s) (nail), initial encounter; T31.0 Burns involving less than 10% of body surface; E11.40 Type 2 diabetes mellitus with diabetic neuropathy, unspecified; F17.290 Nicotine dependence, other tobacco product, uncomplicated; Z90.710 Acquired absence of both cervix and uterus; Z98.49 Cataract extraction status, unspecified eye; Z79.4 Long term (current) use of insulin; X08.8XXA Exposure to other specified smoke, fire and flames, initial encounter; Y93.89 Activity, other specified; Y92.89 Other specified places as the place of occurrence of the external cause; Y99.8 Other external cause status ==

== ENCOUNTER 2023-03-09 11:49 | Emergency (ER) | payer OTHER, MEDICAID ==
[~2023-03-09] VITALS: Ht 172.7 cm; Wt 100.7 kg
== END 2023-03-09 13:36 | disposition home or self-care (01) ==
LOC: ED 11:49
DX: S16.1XXA Strain of muscle, fascia and tendon at neck level, initial encounter (principal); S49.92XA Unspecified injury of left shoulder and upper arm, initial encounter; E11.9 Type 2 diabetes mellitus without complications; I10 Essential (primary) hypertension; K21.9 Gastro-esophageal reflux disease without esophagitis; J44.9 Chronic obstructive pulmonary disease, unspecified; F17.200 Nicotine dependence, unspecified, uncomplicated; Z88.6 Allergy status to analgesic agent; Z79.899 Other long term (current) drug therapy; Z79.4 Long term (current) use of insulin; Z90.711 Acquired absence of uterus with remaining cervical stump; Z90.89 Acquired absence of other organs; Z98.890 Other specified postprocedural states; W07.XXXA Fall from chair, initial encounter; Y93.89 Activity, other specified; Y92.89 Other specified places as the place of occurrence of the external cause; Y99.8 Other external cause status

== ENCOUNTER 2023-08-02 11:04 | Emergency (ER) | payer OTHER, MEDICAID ==
[~2023-08-02] VITALS: Ht 172.7 cm; Wt 100.7 kg
[2023-08-02 11:47] LABS: BASO # 0.1 10*3/uL (0.0-0.1); BASO % 0.6 % (0.0-1.0); EOS # 0.1 10*3/uL (0.0-0.4); EOS % 0.7 % (1.0-4.0); HEMATOCRIT 42.3 % (37.0-47.0); LYMPH # 1.6 10*3/uL (1.3-4.4); LYMPH % 13.3 % (27.0-41.0); MEAN CELL VOLUME 89.4 fl (81.0-99.0); MEAN CORPUSCULAR HGB 30.2 pg (27.0-31.0); MEAN CORPUSCULAR HGB CONC 33.8 g/dl (33.0-37.0); MEAN PLATELET VOLUME 9.5 fl (9.6-12.3); MONO # 0.6 10*3/uL (0.1-1.0); MONO % 4.7 % (3.0-9.0); NEUT # 9.9 10*3/uL (2.3-7.9); NEUT % 80.4 % (47.0-73.0); PLATELET COUNT AUTOMATED 227 10*3/uL (130-400); RED BLOOD COUNT 4.73 10*6/uL (4.10-5.10); RED CELL DISTRI WIDTH 13.1 % (0-14.5); WHITE BLOOD COUNT 12.3 10*3/uL (4.8-10.8)
[2023-08-02 11:57] LABS: ACT PARTIAL THROMBO TIME 27.3 SECONDS (20.0-32.1)
[2023-08-02 12:13] LABS: ALKALINE PHOSPHATASE 163 U/L (46-116); BUN 11 mg/dl (9-23); CHLORIDE 106 mmol/L (98-107); POTASSIUM 3.4 mmol/L (3.4-5.1); SGPT/ALT 7 U/L (5-49); TOTAL PROTEIN 6.3 gm/dL (6.0-8.0)
[2023-08-02 12:34] LABS: BILIRUBIN Negative (Negative); BLOOD Negative (Negative); CLARITY Clear (Clear); COLOR Yellow (Yellow); GLUCOSE 3+ (Negative); KETONE Negative (Negative); LEUKO ESTERASE Negative (Negative); NITRITE Negative (Negative); SPECIFIC GRAVITY >= 1.030 (1.001-1.030)
[2023-08-02 12:40] LABS: URINE AMPHETAMINES Negative (1000ng/ml); URINE BARBITURATES Negative (200ng/ml); URINE BENZODIAZEPINES Positive (200ng/ml); URINE CANNABINOIDS (THC) Negative (50ng/ml); URINE COCAINE Negative (300ng/ml); URINE METHADONE Negative (300ng/ml); URINE OPIATES Negative (300ng/ml); URINE PHENCYCLIDINE Negative (25ng/ml)
[2023-08-02 13:13] LABS: BACTERIA 1+; HYALINE CAST 0-2; YEAST 2+
== END 2023-08-02 15:30 | disposition home or self-care (01) ==
LOC: ED 11:04
PROVIDERS: Nurse Practitioner
DX: R40.0 Somnolence (principal); F32.A Depression, unspecified; K21.9 Gastro-esophageal reflux disease without esophagitis; I10 Essential (primary) hypertension; J44.9 Chronic obstructive pulmonary disease, unspecified; Z88.6 Allergy status to analgesic agent; Z90.711 Acquired absence of uterus with remaining cervical stump; Z90.89 Acquired absence of other organs; Z98.890 Other specified postprocedural states; Z98.51 Tubal ligation status; F17.210 Nicotine dependence, cigarettes, uncomplicated

== ENCOUNTER → 2023-11-11 | Emergency (ER) | payer OTHER, MEDICAID ==
[~2023-11-11] VITALS: Ht 172.7 cm; Wt 99.8 kg
[~2023-11-11] MED LIST changes: +BREZTRI AEROS10.7 GM INH; +EZ NITE SLEEP25 MG PO; +PROVENTIL HFA6.7 GM INH; +QUETIAPINE FUM100 M1 PO; +RANOLAZINE ER500 MG PO; +Ventolin 02.5 MG/3 M INH; +ZITHROMAX250 MG PO
[2023-11-11 14:37] LABS: BILIRUBIN Negative (Negative); BLOOD Negative (Negative); CLARITY Clear (Clear); COLOR Yellow (Yellow); GLUCOSE 3+ (Negative); KETONE Negative (Negative); LEUKO ESTERASE Negative (Negative); NITRITE Negative (Negative); PH 6.5 (4.5-8.0); UROBILINOGEN 0.2 E.U./dl (0.0-1.0)
[2023-11-11 14:38] LABS: BASO % 0.4 % (0.0-1.0); EOS # 0.1 10*3/uL (0.0-0.4); EOS % 0.9 % (1.0-4.0); HEMATOCRIT 42.3 % (37.0-47.0); MEAN CORPUSCULAR HGB 28.6 pg (27.0-31.0); MEAN CORPUSCULAR HGB CONC 31.4 g/dl (33.0-37.0); MEAN PLATELET VOLUME 9.3 fl (9.6-12.3); MONO # 0.5 10*3/uL (0.1-1.0); MONO % 5.2 % (3.0-9.0); NEUT # 7.7 10*3/uL (2.3-7.9); NEUT % 74.1 % (47.0-73.0); PLATELET COUNT AUTOMATED 238 10*3/uL (130-400); RED BLOOD COUNT 4.65 10*6/uL (4.10-5.10); RED CELL DISTRI WIDTH 13.8 % (0-14.5); WHITE BLOOD COUNT 10.4 10*3/uL (4.8-10.8)
[2023-11-11 14:43] LABS: URINE AMPHETAMINES Negative (1000ng/ml); URINE BARBITURATES Negative (200ng/ml); URINE BENZODIAZEPINES Positive (200ng/ml); URINE CANNABINOIDS (THC) Negative (50ng/ml); URINE COCAINE Negative (300ng/ml); URINE METHADONE Negative (300ng/ml); URINE OPIATES Negative (300ng/ml); URINE PHENCYCLIDINE Negative (25ng/ml)
[2023-11-11 14:51] LABS: BACTERIA 1+; EPITHELIAL CELLS 0-2; WBC 0-2 wbc/hpf (0-5); YEAST 1+
[2023-11-11 15:01] LABS: ALKALINE PHOSPHATASE 167 U/L (46-116); BUN 8 mg/dl (9-23); CHLORIDE 105 mmol/L (98-107); LIPASE 23 U/L (12-53); POTASSIUM 4.6 mmol/L (3.4-5.1); TOTAL PROTEIN 6.1 gm/dL (6.0-8.0)
[2023-11-11 15:13] LABS: SGPT/ALT < 7 U/L (5-49)
== END ==
LOC: ED 12:31
PROVIDERS: Internal Medicine
DX: S09.90XA Unspecified injury of head, initial encounter (principal); M54.2 Cervicalgia; E11.9 Type 2 diabetes mellitus without complications; F17.210 Nicotine dependence, cigarettes, uncomplicated; Z88.6 Allergy status to analgesic agent; Z79.2 Long term (current) use of antibiotics; Z79.899 Other long term (current) drug therapy; Z90.711 Acquired absence of uterus with remaining cervical stump; Z90.89 Acquired absence of other organs; Z98.890 Other specified postprocedural states; Z98.51 Tubal ligation status; V89.2XXA Person injured in unspecified motor-vehicle accident, traffic, initial encounter; Y93.I9 Activity, other involving external motion; Y92.488 Other paved roadways as the place of occurrence of the external cause; Y99.8 Other external cause status

== ENCOUNTER 2023-11-20 18:29 | Emergency (ER) | payer OTHER, MEDICAID ==
[~2023-11-20] VITALS: Ht 172.7 cm; Wt 100.7 kg
[2023-11-20] MEDS ORDERED: methylPREDNISolone sod succ 125 MG VIAL IV ONE (19:00)
[2023-11-20] MEDS ORDERED: Albuterol Sulf/Ipratropium 3 ML VIAL NEB ONE (19:00)
[2023-11-20 19:09] LABS: BASO # 0.1 10*3/uL (0.0-0.1); BASO % 0.6 % (0.0-1.0); EOS # 0.1 10*3/uL (0.0-0.4); EOS % 1.5 % (1.0-4.0); HEMATOCRIT 43.9 % (37.0-47.0); LYMPH # 2.9 10*3/uL (1.3-4.4); LYMPH % 30.9 % (27.0-41.0); MEAN CELL VOLUME 89.6 fl (81.0-99.0); MEAN CORPUSCULAR HGB 28.8 pg (27.0-31.0); MEAN CORPUSCULAR HGB CONC 32.1 g/dl (33.0-37.0); MEAN PLATELET VOLUME 9.4 fl (9.6-12.3); MONO # 0.4 10*3/uL (0.1-1.0); MONO % 4.3 % (3.0-9.0); NEUT # 5.9 10*3/uL (2.3-7.9); NEUT % 62.4 % (47.0-73.0); PLATELET COUNT AUTOMATED 261 10*3/uL (130-400); RED CELL DISTRI WIDTH 13.6 % (0-14.5); WHITE BLOOD COUNT 9.5 10*3/uL (4.8-10.8)
[2023-11-20 19:31] LABS: POTASSIUM 4.5 mmol/L (3.4-5.1)
[2023-11-20] MEDS ORDERED: INSULIN REGULAR, HUMAN 1 UNIT/0.01 ML IV ONE ×2 (19:55→20:55)
[2023-11-20] MEDS ORDERED: SODIUM CHLORIDE 0.9% 1,000 ML IV ONE (19:55)
[2023-11-20] MEDS ORDERED: AZITHROMYCIN 250 MG TAB PO ONE (20:55)
[2023-11-20] MEDS ORDERED: Acetaminophen/Hydrocodone 5 MG/325 MG TABLET PO ONE (20:55)
[2023-11-20] MEDS ORDERED: AVPAK AZITHROM250 M1 PO (20:55)
[2023-11-20] MEDS ORDERED: PREDNISONE20 M1 PO (20:55)
== END 2023-11-20 22:10 | disposition home or self-care (01) ==
LOC: ED 18:29
PROVIDERS: Nurse Practitioner Family
DX: J44.1 Chronic obstructive pulmonary disease with (acute) exacerbation (principal); R51.9 Headache, unspecified; Z88.6 Allergy status to analgesic agent; E78.1 Pure hyperglyceridemia; E88.09 Other disorders of plasma-protein metabolism, not elsewhere classified; E11.65 Type 2 diabetes mellitus with hyperglycemia; F41.9 Anxiety disorder, unspecified; F31.9 Bipolar disorder, unspecified; E11.40 Type 2 diabetes mellitus with diabetic neuropathy, unspecified; E78.5 Hyperlipidemia, unspecified; E11.22 Type 2 diabetes mellitus with diabetic chronic kidney disease; I12.9 Hypertensive chronic kidney disease with stage 1 through stage 4 chronic kidney disease, or unspecified chronic kidney disease; N18.31 Chronic kidney disease, stage 3a; K21.9 Gastro-esophageal reflux disease without esophagitis; I10 Essential (primary) hypertension; F17.210 Nicotine dependence, cigarettes, uncomplicated; Z90.711 Acquired absence of uterus with remaining cervical stump; Z90.89 Acquired absence of other organs; Z98.890 Other specified postprocedural states; Z98.51 Tubal ligation status

== ENCOUNTER → 2024-07-31 | Outpatient (CLI) | payer OTHER, MEDICAID ==
[~2024-07-31] MED LIST changes: +AVPAK AZITHROM250 M1 PO; +PREDNISONE20 M1 PO
== END | disposition home or self-care (01) ==
LOC: LAB 12:33
PROVIDERS: ATTEND Internal Medicine Critical Care Medicine
DX: J45.50 Severe persistent asthma, uncomplicated (principal); J44.9 Chronic obstructive pulmonary disease, unspecified; R40.0 Somnolence; G25.81 Restless legs syndrome; G47.33 Obstructive sleep apnea (adult) (pediatric); R91.1 Solitary pulmonary nodule; Z68.32 Body mass index [BMI] 32.0-32.9, adult; Z91.198 Patient's noncompliance with other medical treatment and regimen for other reason; Z87.891 Personal history of nicotine dependence

== ENCOUNTER 2024-11-07 16:24 | Emergency (ER) | payer OTHER, MEDICAID ==
[~2024-11-07] VITALS: Wt 98.9 kg
[2024-11-07] MEDS ORDERED: SODIUM CHLORIDE 0.9% 1,000 ML IV ONE (17:20)
[2024-11-07 17:35] LABS: VENOUS BLOOD GAS O2 SAT 59.8 % (60.0-85.0)
[2024-11-07 17:37] LABS: BASO # 0.1 10*3/uL (0.0-0.1); BASO % 0.9 % (0.0-1.0); EOS # 0.1 10*3/uL (0.0-0.4); EOS % 1.7 % (1.0-4.0); MEAN CELL VOLUME 89.2 fl (81.0-99.0); MEAN CORPUSCULAR HGB 29.1 pg (27.0-31.0); MEAN CORPUSCULAR HGB CONC 32.6 g/dl (33.0-37.0); MONO # 0.5 10*3/uL (0.1-1.0); MONO % 6.2 % (3.0-9.0); NEUT % 61.4 % (47.0-73.0); PLATELET COUNT AUTOMATED 207 10*3/uL (130-400); RED BLOOD COUNT 4.71 10*6/uL (4.10-5.10); RED CELL DISTRI WIDTH 12.4 % (0-14.5); WHITE BLOOD COUNT 8.2 10*3/uL (4.8-10.8)
[2024-11-07 18:04] LABS: BUN 20 mg/dl (9-23); CHLORIDE 100 mmol/L (98-107); POTASSIUM 4.4 mmol/L (3.4-5.1)
[2024-11-07] MEDS ORDERED: INSULIN REGULAR, HUMAN 1 UNIT/0.01 ML IV ONE (18:15)
[2024-11-07 19:16] LABS: BILIRUBIN Negative (Negative); BLOOD Negative (Negative); CLARITY Clear (Clear); COLOR Yellow (Yellow); GLUCOSE 3+ (Negative); KETONE Negative (Negative); LEUKO ESTERASE Negative (Negative); NITRITE Negative (Negative); PH 5.5 (4.5-8.0); SPECIFIC GRAVITY 1.025 (1.001-1.030); UROBILINOGEN 0.2 E.U./dl (0.0-1.0)
[2024-11-07 19:39] LABS: WBC 0-2 wbc/hpf (0-5)
== END 2024-11-07 19:56 | disposition home or self-care (01) ==
LOC: ED 16:24
PROVIDERS: Physician Assistant Medical
DX: E11.65 Type 2 diabetes mellitus with hyperglycemia (principal); R05.9 Cough, unspecified; R09.81 Nasal congestion; R53.1 Weakness; E11.22 Type 2 diabetes mellitus with diabetic chronic kidney disease; I12.9 Hypertensive chronic kidney disease with stage 1 through stage 4 chronic kidney disease, or unspecified chronic kidney disease; N18.9 Chronic kidney disease, unspecified; J44.9 Chronic obstructive pulmonary disease, unspecified; F41.9 Anxiety disorder, unspecified; F31.9 Bipolar disorder, unspecified; E78.5 Hyperlipidemia, unspecified; F17.210 Nicotine dependence, cigarettes, uncomplicated; Z88.6 Allergy status to analgesic agent; Z79.899 Other long term (current) drug therapy; Z90.711 Acquired absence of uterus with remaining cervical stump; Z90.89 Acquired absence of other organs; Z98.890 Other specified postprocedural states

== ENCOUNTER 2024-12-24 17:53 | Emergency (ER) | payer OTHER, MEDICAID ==
[~2024-12-24] VITALS: Ht 172.7 cm; Wt 102.1 kg
[2024-12-24 18:41] LABS: BASO # 0.1 10*3/uL (0.0-0.1); BASO % 0.8 % (0.0-1.0); EOS # 0.1 10*3/uL (0.0-0.4); EOS % 1.4 % (1.0-4.0); HEMATOCRIT 41.3 % (37.0-47.0); MEAN CELL VOLUME 89.6 fl (81.0-99.0); MEAN CORPUSCULAR HGB 29.5 pg (27.0-31.0); MEAN CORPUSCULAR HGB CONC 32.9 g/dl (33.0-37.0); MEAN PLATELET VOLUME 9.5 fl (9.6-12.3); MONO # 0.5 10*3/uL (0.1-1.0); MONO % 5.2 % (3.0-9.0); NEUT # 6.5 10*3/uL (2.3-7.9); NEUT % 67.3 % (47.0-73.0); PLATELET COUNT AUTOMATED 229 10*3/uL (130-400); RED BLOOD COUNT 4.61 10*6/uL (4.10-5.10); RED CELL DISTRI WIDTH 12.8 % (0-14.5); WHITE BLOOD COUNT 9.7 10*3/uL (4.8-10.8)
[2024-12-24 19:12] LABS: ALKALINE PHOSPHATASE 165 U/L (46-116); BUN 22 mg/dl (9-23); CHLORIDE 103 mmol/L (98-107); POTASSIUM 4.4 mmol/L (3.4-5.1); SGPT/ALT 13 U/L (5-49); TOTAL PROTEIN 6.5 gm/dL (6.0-8.0)
[2024-12-24] MEDS ORDERED: SODIUM CHLORIDE 0.9% 1,000 ML IV ONE (19:20)
== END 2024-12-24 21:48 | disposition home or self-care (01) ==
LOC: ED 17:53
PROVIDERS: Nurse Practitioner Family
DX: J06.9 Acute upper respiratory infection, unspecified (principal); I12.9 Hypertensive chronic kidney disease with stage 1 through stage 4 chronic kidney disease, or unspecified chronic kidney disease; E11.22 Type 2 diabetes mellitus with diabetic chronic kidney disease; N18.9 Chronic kidney disease, unspecified; I48.91 Unspecified atrial fibrillation; F32.A Depression, unspecified; F41.9 Anxiety disorder, unspecified; E78.5 Hyperlipidemia, unspecified; K21.9 Gastro-esophageal reflux disease without esophagitis; F17.210 Nicotine dependence, cigarettes, uncomplicated; Z20.822 Contact with and (suspected) exposure to COVID-19; Z88.8 Allergy status to other drugs, medicaments and biological substances; Z79.899 Other long term (current) drug therapy; Z90.710 Acquired absence of both cervix and uterus; Z90.89 Acquired absence of other organs; Z98.890 Other specified postprocedural states